=== PATIENT | female | born 2000 ===

== ENCOUNTER 2024-09-28 06:15 | Day surgery (SDC) | payer OTHER, SELFPAY ==
[2024-09-28] VITALS (8 sets, daily range): BP systolic 107–126; BP diastolic 72–83; BMI 30.1
--- NOTE | 2024-09-28 13:57 | PTCARENOTE ---
Patient returned to [facility] after being discharged. Patient concerned with bleeding through gauze despite being taught that this is expected & to change using gauze & tape as needed as supplied by RN. RN changed dressing for patient and sent on her way.
== END 2024-09-28 12:55 | disposition home or self-care (01) ==
LOC: SDS 06:15
PROVIDERS: ATTENDING PHYSICIAN Otolaryngology
DX: J34.2 Deviated nasal septum (principal)
CPT/HCPCS: 30520